=== PATIENT | male | born 1965 | race African-American/Black ===

== ENCOUNTER 2021-05-29 18:44 | Emergency (ER) | payer MEDICARE ==
[~2021-05-29] VITALS: Ht 188 cm; Wt 125.0 kg
[2021-05-29] MEDS ORDERED: ONDANSETRON HCL 4 MG/2 ML VIAL IM ONE (21:15)
[2021-05-29] MEDS ORDERED: MORPHINE SULFATE 4 MG/ML SYRINGE IM ONE ×2 (21:15→23:30)
[2021-05-29 22:50] VITALS: BP 136/72
[2021-05-29] MEDS ORDERED: MORPHINE SULFATE 4 MG/ML SYRINGE IVP ONE (23:15)
== END 2021-05-30 01:15 | disposition home or self-care (01) ==
LOC: EMS 18:44
DX: M54.5 Low back pain (principal); G89.29 Other chronic pain
CPT/HCPCS: 72131; 96372; 99284; J2270; J2405; 99285

== ENCOUNTER 2021-06-19 12:40 | Emergency (ER) | payer MEDICARE ==
[~2021-06-19] VITALS: Ht 190.5 cm; Wt 123.2 kg
[2021-06-19 13:45] VITALS: BP 139/85
[2021-06-19] MEDS ORDERED: KETOROLAC TROMETHAMINE 60 MG/2 ML VIAL IM ONE (14:30)
[2021-06-19] MEDS ORDERED: CYCLOBENZAPRINE HCL 10 MG TABLET PO ONE (14:30)
== END 2021-06-19 20:36 | disposition home or self-care (01) ==
LOC: EMS 12:46
DX: G89.29 Other chronic pain (principal); M54.5 Low back pain
CPT/HCPCS: 96372; 99283; J1885